=== PATIENT | male | born 1960 | race Caucasian/White ===

== ENCOUNTER 2019-09-18 08:31 | Outpatient (CLI) | payer OTHER, SELFPAY ==
--- NOTE | ~2019-09-18 | XR_ITS ---
EXAMINATION: XR ankle LT 2V, XR ankle RT 2V, XR foot LT 2V, XR foot RT 2V DATE: 09/18/2019 09:12 INDICATION: Multiple joint pain with myalgias and fatigue. TECHNIQUE: 1. Anteroposterior and lateral view of the left ankle were obtained. 2. Dorsoplantar and lateral views of the left foot were obtained. 3. Anteroposterior and lateral view of the left ankle were obtained. 2. Dorsoplantar and lateral views of the left foot were obtained. COMPARISON: None. FINDINGS: Left foot and ankle: Alignment of the left foot and ankle is normal. No fractures. Mild osteoarthritis at the first metata rsophalangeal and several interphalangeal joints. Subcortical lucency and mild hypertrophic change at the medial aspect of the head of the left first metatarsal which could be related to bunion or an er osion. Soft tissues are unremarkable. Right foot and ankle: Alignment of the right foot and ankle is normal. No fracture. Mild osteoarthritis at the first metata rsophalangeal and several interphalangeal joints. Cortical erosions at the medial head of the first m etatarsal and at the medial base of the first proximal phalanx. Small plantar calcaneal spur. Soft ti ssues are unremarkable. IMPRESSION: 1. 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 2. Lucencies at the medial aspect of the heads of the bilateral metatarsals which could represent cys tic change related to bunion however differential would include erosion such as in the setting of gou t with suggestion of an additional erosion at the medial base of the right first proximal phalanx. Reviewed, dictated and finalized at location A. IMPRESSION: 1. 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 2. Lucencies at the medial aspect of the heads of the bilateral metatarsals whi ch could represent cystic change related to bunion however differential would i nclude erosion such as in the setting of gout with suggestion of an additional erosion at the medial base of the right first proximal phalanx. IMPRESSION: 1. 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 2. Lucencies at the medial aspect of the heads of the bilateral metatarsals whi ch could represent cystic change related to bunion however differential would i nclude erosion such as in the setting of gout with suggestion of an additional erosion at the medial base of the right first proximal phalanx. IMPRESSION: 1. 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 2. Lucencies at the medial aspect of the heads of the bilateral metatarsals whi ch could represent cystic change related to bunion however differential would i nclude erosion such as in the setting of gout with suggestion of an additional erosion at the medial base of the right first proximal phalanx.
--- NOTE | ~2019-09-18 | XR_ITS ---
EXAMINATION: XR hand LT 2V, XR wrist RT 2V, XR wrist LT 2V, XR hand RT 2V DATE: 09/18/2019 09:12 INDICATION: Multiple joint pain. Myalgia and fatigue. TECHNIQUE: 1. Posteroanterior and lateral views of the left wrist were obtained. 2. Dorsal palmar and lateral views of the left hand were obtained. 3. Posteroanterior and lateral views of the right wrist were obtained. 4. Dorsal palmar and lateral views of the right hand were obtained. COMPARISON: None. 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 Additional chronic nonun ited fracture at the tip of the tuft of the left first distal phalanx. Old healed fracture deformitie s at the distal left radius and at the distal diaphysis of the left third distal phalanx. Osseous exc rescence at the ulnar side of the head of the third metacarpal which could represent a degenerative o steophyte or ossification related to old trauma. Polyarticular osteoarthritis, moderate severity at t he radiocarpal, triscaphe and first interphalangeal joints and mild at the midcarpal, first carpometa carpal and multiple metacarpophalangeal and interphalangeal joints. No cortical erosions. Small loose osteochondral body projecting near the tip of the ulnar styloid process. Right hand and wrist: Alignment is normal. No fracture. Polyarticular osteoarthritis, mild to moderate severity at the firs t and metacarpophalangeal, first interphalangeal and third distal interphalangeal joints and mild at the first carpometacarpal and at the remaining metacarpophalangeal and interphalangeal joints. Small erosions with overhanging edge at the margins of the articular surfaces at the ulnar side of the head of the third middle phalanx and at the radial side of the head of the fourth middle phalanx. IMPRESSION: 1. Several old fractures at the left hand and wrist including nonunited fracture at the scaphoid wais t. 2. Mild to moderate polyarticular osteoarthritis at the bilateral hands and at the left wrist. 3. Couple small erosions at the margins of the heads of the right third and fourth middle phalanges s uggesting possibility of gout or other inflammatory arthritis. Reviewed, dictated and finalized at location A. IMPRESSION: 1. Several old fractures at the left hand and wrist including nonunited fractur e at the scaphoid waist. 2. Mild to moderate polyarticular osteoarthritis at the bilateral hands and at the left wrist. 3. Couple small erosions at the margins of the heads of the right third and fou rth middle phalanges suggesting possibility of gout or other inflammatory arthr itis. IMPRESSION: 1. Several old fractures at the left hand and wrist including nonunited fractur e at the scaphoid waist. 2. Mild to moderate polyarticular osteoarthritis at the bilateral hands and at the left wrist. 3. Couple small erosions at the margins of the heads of the right third and fou rth middle phalanges suggesting possibility of gout or other inflammatory arthr itis. IMPRESSION: 1. Several old fractures at the left hand and wrist including nonunited fractur e at the scaphoid waist. 2. Mild to moderate polyarticular osteoarthritis at the bilateral hands and at the left wrist. 3. Couple small erosions at the margins of the heads of the right third and fou rth middle phalanges suggesting possibility of gout or other inflammatory arthr itis.
--- NOTE | ~2019-09-18 | XR_ITS ---
EXAMINATION: XR sacroiliac joints min 3V DATE: 09/18/2019 09:12 INDICATION: Joint pain. Myalgia and fatigue. TECHNIQUE: Frontal, and left and right views of the sacroiliac joints were obtained. COMPARISON: None. FINDINGS: Alignment is normal. Sacral arches are intact. No acute fracture. Internal fixation at the proximal r ight femur. Heterotopic ossification near the tip of the right greater trochanter likely related to o ld trauma. Bilateral sacral iliac joint spaces appear normal and symmetric with sharp cortical margin s. No erosions or subarticular sclerosis to suggest an inflammatory sacroiliitis. Mild right hip oste oarthritis with slight asymmetric joint space narrowing relative to the left hip. IMPRESSION: 1. Normal bilateral sacroiliac joints. 2. 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 IMPRESSION: 1. Normal bilateral sacroiliac joints. 2. Asymmetric mild osteoarthritis at the right hip likely secondary to old trau ma with internal fixation at the proximal right femur and heterotopic ossificat ion at the greater trochanter Right
== END 2019-09-18 08:32 | disposition home or self-care (01) ==
PROVIDERS: PCP Family Medicine; Visit Provider Internal Medicine Rheumatology
DX: M79.18 Myalgia, other site (principal); R53.83 Other fatigue; M16.11 Unilateral primary osteoarthritis, right hip; M19.072 Primary osteoarthritis, left ankle and foot; M19.071 Primary osteoarthritis, right ankle and foot; M89.9 Disorder of bone, unspecified; Z87.81 Personal history of (healed) traumatic fracture; M19.042 Primary osteoarthritis, left hand; M19.041 Primary osteoarthritis, right hand
CPT/HCPCS: 72202; 73100; 73120; 73600; 73620